=== PATIENT | male | born 1975 | race Caucasian/White ===

== ENCOUNTER 2021-02-15 16:28 | Outpatient (CLI) | payer BC | END 2021-02-15 16:29 | disposition home or self-care (01) | LOC: COV 16:28 | PROVIDERS: ATTEND Family Medicine | DX: Z20.822 Contact with and (suspected) exposure to COVID-19 (principal) ==

== ENCOUNTER 2021-07-14 08:00 | Outpatient (CLI) | payer BC | END 2021-07-14 23:59 | disposition home or self-care (01) | LOC: LAB.S 08:00 | PROVIDERS: ATTEND Physician Assistant Medical | DX: B34.9 Viral infection, unspecified (principal); Z20.822 Contact with and (suspected) exposure to COVID-19 ==